=== PATIENT | female | born 1990 ===

== ENCOUNTER → 2019-03-21 | Outpatient (CLI) | payer SELFPAY | END | disposition home or self-care (01) | LOC: LAB SHORT 14:26 → LAB 14:26 | PROVIDERS: Family Medicine | DX: Z12.4 Encounter for screening for malignant neoplasm of cervix (principal); Z12.72 Encounter for screening for malignant neoplasm of vagina; Z90.710 Acquired absence of both cervix and uterus | CPT/HCPCS: 87625; G0145 ==